=== PATIENT | male | born 1995 | race Two or more races ===

== ENCOUNTER 2019-04-15 12:58 | Emergency (ER) | payer SELFPAY ==
[~2019-04-15] VITALS: Ht 177.8 cm; Wt 79.4 kg
--- NOTE | 2019-04-15 14:00 | NUR ---
DIARRHEA WITH SOFT STOOL FOR THE PAST WEEK. DENIES BLOODY STOOL, N/V. ATTEMPTED TO STAY HYDRATED AT HOME. NO ACUTE DISTRESS NOTED. AOX4, VSS, RR EVEN AND UNLABORED ON RA. MADE COMFORTABLE AND READY FOR EVAL.
[2019-04-15] MEDS ORDERED: ONDANSETRON HCL/PF 4 MG/2 ML VIAL ONE (14:18)
[2019-04-15 14:30] LABS: BASOPHILS % (AUTO) 0.3 % (0.0-2.0); EOSINOPHILS % (AUTO) 1.9 % (0.0-6.0); HEMATOCRIT 43 % (39-51); HEMOGLOBIN 14.2 g/dL (13.5-17.5); LYMPHOCYTES # (AUTO) 1.9 /CMM (0.8-4.8); LYMPHOCYTES % (AUTO) 26.4 % (20.0-44.0); MEAN CORPUSCULAR HGB CONC 33 g/dl (31.0-36.0); MEAN CORPUSCULAR VOLUME 84 fL (80-96); MONOCYTES # (AUTO) 1.3 /CMM (0.1-1.30); MONOCYTES % (AUTO) 18.5 % (2.0-12.0); NEUTROPHILS # (AUTO) 3.8 /CMM (1.8-8.9); NEUTROPHILS % (AUTO) 52.9 % (43.0-81.0); PLATELET COUNT (AUTO) 269 /CMM (150-450); RED BLOOD CELL COUNT(AUTO) 5.07 MIL/uL (4.5-6.0); WHITE BLOOD COUNT (AUTO) 7.3 K/uL (4.3-11.0)
[2019-04-15] MEDS ORDERED: IV NS 0.9% 1,000 ML BAG IV ONE (14:30)
[2019-04-15] MEDS ORDERED: ONDANSETRON HCL/PF 4 MG/2 ML VIAL IVP ONE (14:30)
[2019-04-15 14:38] LABS: CALCIUM, SERUM 9.2 mg/dL (8.5-10.1); CREATININE 0.9 mg/dL (0.6-1.3); POTASSIUM 3.6 mmol/L (3.5-5.1)
[2019-04-15 14:43] LABS: ALBUMIN 3.3 g/dL (3.4-5.0); BILIRUBIN,TOTAL 0.2 mg/dL (0.2-1.0); TOTAL PROTEIN, SERUM 7.9 g/dL (6.4-8.2)
--- NOTE | 2019-04-15 15:44 | NUR ---
IV removed. Catheter intact and site benign. Pressure and 4x4 applied to site. No bleeding noted.Patient discharged to home in stable condition. Written and verbal after care instructions given. Patient verbalizes understanding of instruction.
[2019-04-15 16:16] VITALS: BP 145/98
== END 2019-04-15 15:44 | disposition home or self-care (01) ==
LOC: ER 12:58
DX: R19.7 Diarrhea, unspecified (principal)
CPT/HCPCS: 36415; 80048; 80076; 83690; 85025; 96361; 96374; 99283; J2405; J7030

== ENCOUNTER 2019-04-19 21:40 | Emergency (ER) | payer SELFPAY ==
[~2019-04-19] VITALS: Ht 180.3 cm; Wt 73.5 kg
[2019-04-19 22:35] VITALS: BP 115/63
--- NOTE | 2019-04-19 22:35 | NUR ---
PT DARSHAN C/O DIARRHEA X 12 DAYS, SEEN HERE 04/15/19 FOR SAME. PATIENT STATES HE WANTS AN "STD PANEL". MULTIPLE COMPLAINTS. PT AOX4. NAD NOTED. RESP EVEN AND UNLABORED. WILL CONTINUE TO MONITOR.
--- NOTE | 2019-04-19 23:26 | NUR ---
PT TAKEN TO CT VIA WHEELCHAIR
[2019-04-19] MEDS ORDERED: IV NS 0.9% 1,000 ML BAG IV ONE (23:30)
[2019-04-19 23:33] LABS: BASOPHILS % (AUTO) 0.4 % (0.0-2.0); HEMATOCRIT 37 % (39-51); HEMOGLOBIN 12.6 g/dL (13.5-17.5); LYMPHOCYTES # (AUTO) 2.2 /CMM (0.8-4.8); LYMPHOCYTES % (AUTO) 19.1 % (20.0-44.0); MEAN CORPUSCULAR HGB CONC 34 g/dl (31.0-36.0); MEAN CORPUSCULAR VOLUME 83 fL (80-96); MONOCYTES # (AUTO) 1.3 /CMM (0.1-1.30); MONOCYTES % (AUTO) 11.4 % (2.0-12.0); NEUTROPHILS # (AUTO) 7.8 /CMM (1.8-8.9); NEUTROPHILS % (AUTO) 68.1 % (43.0-81.0); PLATELET COUNT (AUTO) 270 /CMM (150-450); RED BLOOD CELL COUNT(AUTO) 4.46 MIL/uL (4.5-6.0); WHITE BLOOD COUNT (AUTO) 11.5 K/uL (4.3-11.0)
--- NOTE | 2019-04-19 23:37 | NUR ---
PT RETURNED FROM CT. TOLERATED WELL.
[2019-04-19 23:42] LABS: CALCIUM, SERUM 8.7 mg/dL (8.5-10.1); POTASSIUM 3.2 mmol/L (3.5-5.1)
[2019-04-19 23:48] LABS: BILIRUBIN,TOTAL 0.3 mg/dL (0.2-1.0); TOTAL PROTEIN, SERUM 7.2 g/dL (6.4-8.2)
[2019-04-20] MEDS ORDERED: POTASSIUM CHLORIDE 20 MEQ TAB.PRT.SR PO ONE ×2 (00:12)
--- NOTE | 2019-04-20 00:55 | NUR ---
IV removed. Catheter intact and site benign. Pressure and 4x4 applied to site. No bleeding noted.Patient discharged to home in stable condition. Written and verbal after care instructions given. Patient verbalizes understanding of instruction. PT AMBULATORY WITH STEADY GAIT.
== END 2019-04-20 00:56 | disposition home or self-care (01) ==
LOC: ER 21:54
DX: R19.7 Diarrhea, unspecified (principal); J45.909 Unspecified asthma, uncomplicated; F32.9 Major depressive disorder, single episode, unspecified; F41.9 Anxiety disorder, unspecified; F98.8 Other specified behavioral and emotional disorders with onset usually occurring in childhood and adolescence; Z90.89 Acquired absence of other organs
CPT/HCPCS: 36415; 74176; 80048; 80076; 83690; 85025; 96360; 99284; J7030

== ENCOUNTER 2019-04-29 16:20 | Emergency (ER) | payer OTHER ==
[~2019-04-29] VITALS: Ht 177.8 cm; Wt 74.8 kg
[2019-04-29] MEDS ORDERED: IV NS 0.9% 1,000 ML BAG IV ONE (17:30)
[2019-04-29] MEDS ORDERED: ONDANSETRON HCL/PF 4 MG/2 ML VIAL IVP ONE (17:30)
[2019-04-29] MEDS ORDERED: Thiamine 100 MG in IV D5W 50 ML IV SCH (17:30)
[2019-04-29] MEDS ORDERED: Thiamine 100 MG/ML VIAL ONE (17:38)
[2019-04-29] MEDS ORDERED: ONDANSETRON HCL/PF 4 MG/2 ML VIAL ONE (17:38)
[2019-04-29 17:58] LABS: BASOPHILS # (AUTO) 0.1 /CMM (0.0-0.2); BASOPHILS % (AUTO) 0.6 % (0.0-2.0); EOSINOPHILS % (AUTO) 0.5 % (0.0-6.0); HEMATOCRIT 37 % (39-51); HEMOGLOBIN 12.5 g/dL (13.5-17.5); LYMPHOCYTES # (AUTO) 1.8 /CMM (0.8-4.8); LYMPHOCYTES % (AUTO) 22.2 % (20.0-44.0); MEAN CORPUSCULAR HGB CONC 34 g/dl (31.0-36.0); MEAN CORPUSCULAR VOLUME 83 fL (80-96); MONOCYTES % (AUTO) 11.8 % (2.0-12.0); NEUTROPHILS # (AUTO) 5.3 /CMM (1.8-8.9); NEUTROPHILS % (AUTO) 64.9 % (43.0-81.0); PLATELET COUNT (AUTO) 333 /CMM (150-450); RED BLOOD CELL COUNT(AUTO) 4.52 MIL/uL (4.5-6.0); WHITE BLOOD COUNT (AUTO) 8.2 K/uL (4.3-11.0)
--- NOTE | 2019-04-29 18:01 | NUR ---
Abdominal pain/ Diarrhea "Been going on/off to UC and ER x1 mo persistent diarrhea x2wks. Not better stool green to yellowish". PT AAOX4, VSS. DENIES CP, SOB, DIZZINESS AT THIS TIME. SEEN & EVAL'D BY ALHAJI RUBIN. MEDICATED ORDERED & WILL CONT TO MONITOR.
[2019-04-29 18:07] LABS: CREATININE 0.8 mg/dL (0.6-1.3); POTASSIUM 3.4 mmol/L (3.5-5.1)
[2019-04-29 18:17] LABS: ALBUMIN 2.7 g/dL (3.4-5.0); BILIRUBIN,TOTAL 0.1 mg/dL (0.2-1.0)
[2019-04-29 20:07] VITALS: BP 132/84
--- NOTE | 2019-04-29 20:07 | NUR ---
Patient discharged to home in stable condition. Written and verbal after care instructions given. Patient verbalizes understanding of instruction. IV removed. Catheter intact and site benign. Pressure and 4x4 applied to site. No bleeding noted.
== END 2019-04-29 20:08 | disposition home or self-care (01) ==
LOC: ER 16:24
DX: R19.7 Diarrhea, unspecified (principal); J45.909 Unspecified asthma, uncomplicated; F32.9 Major depressive disorder, single episode, unspecified; F41.9 Anxiety disorder, unspecified; Z98.890 Other specified postprocedural states
CPT/HCPCS: 36415; 76705; 80048; 80076; 83690; 85025; 96365; 96375; 99284; J2405; J3411; J7030; J7060

== ENCOUNTER 2019-05-21 17:28 | Emergency (ER) | payer SELFPAY ==
[~2019-05-21] VITALS: Ht 180.3 cm; Wt 72.6 kg
[2019-05-21 17:40] VITALS: BP 145/97
--- NOTE | 2019-05-21 17:40 | NUR ---
"NOTICED GENITAL AND FACE RED SPOTS STARTED LAST WEEK" A/OX4, NO DISTRESS NOTED.
[2019-05-21] MEDS ORDERED: CEFTRIAXONE 1 G VIAL ONE (18:26)
[2019-05-21] MEDS ORDERED: AZITHROMYCIN 250 MG TABLET ONE (18:27)
[2019-05-21] MEDS ORDERED: PENICILLIN G BENZATHINE 2.4 MMU/4 ML ML IM ONE ×2 (18:27→18:30)
[2019-05-21] MEDS ORDERED: LIDOCAINE /MPF 1% VIAL 5 ML VIAL ONE (18:29)
[2019-05-21] MEDS ORDERED: AZITHROMYCIN 250 MG TABLET PO ONE (18:30)
[2019-05-21] MEDS ORDERED: CEFTRIAXONE 1 G VIAL IM ONE (18:30)
== END 2019-05-21 18:52 | disposition home or self-care (01) ==
LOC: ER 17:28
DX: N48.5 Ulcer of penis (principal); L03.311 Cellulitis of abdominal wall; Z20.2 Contact with and (suspected) exposure to infections with a predominantly sexual mode of transmission; F41.9 Anxiety disorder, unspecified; J45.909 Unspecified asthma, uncomplicated; F32.9 Major depressive disorder, single episode, unspecified; F98.8 Other specified behavioral and emotional disorders with onset usually occurring in childhood and adolescence; Z98.890 Other specified postprocedural states
CPT/HCPCS: 96372 ×2; 99283; J0558; J0696; J3490

== ENCOUNTER 2019-06-22 20:14 | Emergency (ER) | payer MEDICAID ==
[~2019-06-22] VITALS: Ht 180.3 cm; Wt 72.6 kg
[2019-06-22 20:28] VITALS: BP 128/83
== END 2019-06-22 21:14 | disposition home or self-care (01) ==
LOC: ER 20:17
DX: B00.9 Herpesviral infection, unspecified (principal); F41.9 Anxiety disorder, unspecified; J45.909 Unspecified asthma, uncomplicated; F32.9 Major depressive disorder, single episode, unspecified; F98.8 Other specified behavioral and emotional disorders with onset usually occurring in childhood and adolescence; Z98.890 Other specified postprocedural states